=== PATIENT | female | born 1960 | race Caucasian/White ===

== ENCOUNTER 2017-03-12 08:28 | Outpatient (CLI) | payer OTHER | END 2017-03-12 23:59 | LOC: LAB.R 08:28 | PROVIDERS: ATTEND Family Medicine | DX: N39.0 Urinary tract infection, site not specified (principal) | CPT/HCPCS: 87086 ==

== ENCOUNTER 2017-06-18 15:51 | Outpatient (CLI) | payer OTHER ==
--- NOTE | 2017-06-21 20:31 | Mammography Report ---
DIGITAL BILATERAL SCREENING MAMMOGRAPHY: 06/18/2017 COMPARISON: None. Bilateral digital CC and MLO projections. There are scattered fibroglandular densities. In the upper-inner middle third of the right breast, t here is a small cluster of slightly irregular calcifications for which magnification views are sugges vamsi. Otherwise, no dominant mass, architectural distortion, skin thickening, suspicious microcalcifi cations, or other finding. IMPRESSION: NEGATIVE LEFT BREAST. NEEDS ADDITIONAL EVALUATION RIGHT BREAST BY MAGNIFICATION VIEWS. BIRADS CATEGORY: 0, INCOMPLETE EVALUATION. STANDARD QUALIFYING STATEMENTS 1. This examination was reviewed with the aid of Computed-Aided Detection (CAD). 2. A negative or benign imaging report should not delay biopsy if clinically suspicious findings are present. Consider surgical consultation if warranted. More than 5% of cancers are not identified b y imaging. 3. Dense breasts may obscure an underlying neoplasm. JOB #: [id number] EXT JOB #:[id number]
== END 2017-06-18 15:52 | disposition home or self-care (01) ==
LOC: DI.N 15:51
PROVIDERS: ATTEND Family Medicine
DX: Z12.31 Encounter for screening mammogram for malignant neoplasm of breast (principal); R92.1 Mammographic calcification found on diagnostic imaging of breast
CPT/HCPCS: 77067

== ENCOUNTER 2017-06-30 13:59 | Outpatient (CLI) | payer OTHER | END 2017-06-30 14:00 | disposition home or self-care (01) | LOC: DI 13:59 | PROVIDERS: ATTEND Family Medicine | DX: Z53.9 Procedure and treatment not carried out, unspecified reason (principal) ==